=== PATIENT | male | born 1965 | race Caucasian/White ===

== ENCOUNTER 2021-01-03 09:07 | Inpatient (IN) ==
[2021-01-03] MEDS ORDERED: ONDANSETRON INJ 2 MG/ML 2 ML VIAL IV STA (09:26)
[2021-01-03] MEDS ORDERED: HYDROmorphone INJ 1 MG/ML SYRINGE IV STA (09:26)
[2021-01-03 10:34] LABS: Basophils # (auto) 0.03 K/uL (0-0.2); Basophils % (auto) 0.5 %; Eosinophils # (auto) 0.41 K/uL (0-0.5); Eosinophils % (auto) 6.9 %; Hematocrit (blood only) 46.2 % (42-52); Immature Granulocytes # (auto) 0.01 K/uL (0.00-0.02); Immature Granulocytes % (auto) 0.2 %; Lymphocytes # (auto) 2.08 K/uL (1.2-3.4); Lymphocytes % (auto) 35.1 %; Mean Corpuscular Hemoglobin 32.6 pg (25-34); Mean Corpuscular Hgb Conc 34.6 g/dL (32-36); Mean Corpuscular Volume 94.1 fL (80-100); Mean Platelet Volume 9.6 fL (7.4-10.4); Monocytes # (auto) 0.48 K/uL (0.11-0.59); Monocytes % (auto) 8.1 %; Neutrophils # (auto) 2.91 K/uL (1.4-6.5); Neutrophils % (auto) 49.2 %; Platelet Count 276 K/uL (130-400); RDW Coefficient of Variation 13.9 % (11.5-14.5); RDW Standard Deviation 47.7 fL (36.4-46.3); Red Blood Count 4.91 M/uL (4.7-6.1); White Blood Count 5.92 K/uL (4.8-10.8)
[2021-01-03 10:44] LABS: Partial Thromboplastin Time 26.9 Seconds (21.0-31.0); Prothrombin Time 9.8 Seconds (9.0-12.0)
[2021-01-03 10:51] LABS: BUN Creatinine Ratio 16.9 (10-20); Calcium 9.4 mg/dl (8.5-10.1); Est GFR (African American) 89.1 ml/min; Est GFR (Non-African American) 76.9 ml/min; Potassium 4.5 mmol/L (3.5-5.1)
--- NOTE | 2021-01-03 12:12 | Magnetic Resonance Report ---
MR lumbar spine wo con CLINICAL HISTORY: 55 years-old Male with backpainurinaryincontinecerocordcompression. Chronic low ba ck pain with bilateral lower extremity radicular symptoms COMPARISON: None. TECHNIQUE: Multiplanar, multi sequence MRI of the lumbar spine was performed without intravenous cont rast. FINDINGS: The housekeeping laundry worker localizer images demonstrate no gross extraspinal abnormality. Conus medullaris terminates at T12-L1. Signal within the imaged thoracic spinal cord is unremarkable. No acute fracture, subluxat ion or endplate erosion. The paraspinal tissues are within normal limits. Prior posterior decompressi on at L3-L5 with posterior interbody shania and screw fusion at L3-S1 with discectomy changes at L4-L5. Small amount of fluid within the deep operative bed is likely expected postoperative finding. T11-T12: Moderate intervertebral disc space narrowing with spondylitic spurring and circumferential a nnular disc bulge. Posterior annular fissure with central disc protrusion and mild facet arthrosis. T here is mild central canal stenosis AP dimension of the thecal sac measuring 9 mm. The bilateral neur al foramen are patent. T12-L1: Mild facet arthrosis. No central canal or neural foraminal stenosis. L1-L2: Mild facet arthrosis. No central canal or neural foraminal stenosis. L2-L3: Mild intervertebral disc space narrowing with spondylitic spurring and circumferential annula r disc bulge with moderate facet arthrosis. Posterior annular fissure with large central disc protrus ion extending into the paracentral spaces. This results in severe central canal stenosis with AP dime nsion of the thecal sac measuring 3 mm. Severe narrowing of the lateral recesses. There is mild right greater than left bilateral neural foraminal narrowing. L3-L4: Mild intervertebral disc space narrowing with spondylitic spurring. Prior posterior decompres anthony. No central canal or left neural foraminal narrowing. Mild right foraminal stenosis. L4-L5: Prior discectomy with posterior decompression. No central canal or left foraminal narrowing i dentified. There is suggestion mild right foraminal stenosis. L5-S1: Posterior decompression. Mild intervertebral disc space narrowing. Epidural lipomatosis. No s ignificant central canal or neural foraminal narrowing. IMPRESSION: 1. Mild intervertebral disc space narrowing with spondylitic spurring and circumferential annular dis c bulge with moderate facet arthrosis at L2-L3. Posterior annular fissure with large central disc pro trusion causes severe central canal narrowing with severe stenosis of the lateral recesses, and mild bilateral neural foraminal narrowing. 2. At T11-T12, discogenic degeneration contributes to cause mild central canal stenosis with mild romi ateral neural foraminal narrowing. 3. Prior posterior decompression at L3-L5 with posterior interbody shania and screw fusion at L3-S1. ACT 112: Negative or not required by law. The above report was generated using voice recognition software. It may contain grammatical, syntax o r spelling errors. Electronically signed by: Angel Flores M.D. 01/03/2021 12:11 PM
--- NOTE | 2021-01-03 14:24 | Anesthesiology Consultation ---
Date of Service January 03, 2021 The patient was initially scheduled for surgery yesterday, 01/02/21. He required preoperative cardiac clearance so his surgery was delayed. Cardiac clearance was sent yesterday from the patient's supervisor filtration in [place] stating that the patient was okay for surgery with a low to moderate cardiac risk. The patient came through the ER today as an emergency add on. Assessment & Plan (1) Encounter for pre-operative examination: Chart Review Chart Review: Acceptable Risk for Surgery and Patient NOT seen in Pre Admission Testing Consults Requested none cardiac clearance was obtained History Height/Weight Height: 5 ft 8 in Weight: 87.3 kg Allergies Allergy/AdvReac Type Severity Reaction Status Date / Time codeine AdvReac Mild NAUSEA AND Verified 01/03/21 09:21 VOMITING naproxen AdvReac Mild NAUSEA Verified 01/03/21 09:21 Medications Home Medications Medication Instructions Recorded Confirmed Last Taken esomeprazole magnesium 40 mg 40 mg PO QAM 12/30/20 01/03/21 01/02/21 capsule,delayed release (Nexium) fluoxetine 40 mg capsule 40 mg PO QAM 12/30/20 01/03/21 01/02/21 hydrocodone 5 mg-acetaminophen 325 1 tab PO Q8H PRN 12/30/20 01/03/21 Unknown mg tablet losartan 50 mg tablet 50 mg PO QAM 12/30/20 01/03/21 01/02/21 metoprolol succinate 25 mg 25 mg PO QAM 12/30/20 01/03/21 01/02/21 tablet,extended release 24 hr (Toprol XL) pravastatin 40 mg tablet 40 mg PO QAM 12/30/20 01/03/21 01/02/21 Past Medical History Medical History BPH (benign prostatic hyperplasia) Chronic diastolic CHF (congestive heart failure) Depression GERD (gastroesophageal reflux disease) Herniated disc Hyperlipidemia Hypertension Osteoarthritis Sleep apnea no machine Spinal stenosis Past Surgical History Surgical History History of lumbar spinal fusion x 3 History of surgery on arm right arm crushed in accident and had 3 surgeries Hx of tonsillectomy Hx of umbilical hernia repair Social History Smoking Status: Never smoker tobacco type: cigarettes Smoking cigarettes per day: 1/2 ppd Hx Alcohol Use: Yes Alcohol type: beer alcohol intake frequency: a few times a week Hx Substance Use: No substance use type: does not use Physical Exam Vital Signs Last Vital Signs Temp 36.7 C 01/03/21 09:10 Pulse 66 01/03/21 14:14 Resp 18 01/03/21 14:14 BP 118/71 01/03/21 14:14 Pulse Ox 99 01/03/21 14:14 Testing Laboratory Results 01/03/21 10:23 01/03/21 10:23 PT 9.8 Seconds (9.0-12.0) 01/03/21 10:23 INR 1.0 (0.9-1.1) 01/03/21 10:23 APTT 26.9 Seconds (21.0-31.0) 01/03/21 10:23 Electrocardiogram Date: 12/29/20 Findings: + NSR @ (67), + NSST changes and + T wave inversion (anterior) Chest X-Ray Date: 12/29/20 R chest 2V PA/lateral HISTORY: 55 years-old Male PREOP chronic back pain COMPARISON: 07/03/2011 TECHNIQUE: PA and lateral views of the chest FINDINGS: Cardiomediastinal and hilar silhouettes are within normal limits. No pneumot horax, pleural effusion, airspace consolidation or overt pulmonary edema. Bones of the chest appear grossly intact. IMPRESSION: No acute process. ACT 112: Negative or not required by law. The above report was generated using voice recognition software. It may contain grammatical, syntax or spelling errors. Electronically signed by: Angel Flores M.D. 12/29/2020 1:20 PM Echocardiogram Date: 10/20/20 EF: 45 Other Findings: + atrial enlargement (left atrium mild dilation, right atrium slight dilation) and + RVH (mildly dilated) Valvular Disease: + MR (trace)
--- NOTE | 2021-01-03 14:27 | Emergency Department Note ---
History of Present Illness General Chief Complaint: Back Injury/Pain Stated Complaint: BACK PAIN, UNCONTROLLABLE BOWELS Time Seen by Provider: 01/03/21 09:22 History of Present Illness Provider Complaint: back pain Onset (ago): day(s) 1 Similar Symptoms Previously: Yes Location: lumbar spine Quality: + sharp Radiation: none Severity: severe Maximum Pain Intensity: 9 Current Pain Intensity: 9 Relieved By: + none Exacerbated By: + none Context: no turning/twisting, no bending, no fall, no trauma, no syncope, no history of kidney stones or no IV drug use Associated symptoms: + urinary incontinence and + fecal incontinence; no weakness, no syncope, no numbness, no loss of sensation in lower extremities, no increased urinary urgency, no increased urinary frequency, no a change in bowel habits, no fever, no chills, no abdominal pain, no dysuria, no hematuria, no parasthesias, no arthralgias or no myalgias Sees Dr. Clarke Home Medications Medication Instructions Recorded Confirmed Type esomeprazole magnesium 40 mg 40 mg PO QA 12/30/20 01/03/21 History capsule,delayed release (Nexium) fluoxetine 40 mg capsule 40 mg PO QAM 12/30/20 01/03/21 History hydrocodone 5 mg-acetaminophen 325 1 tab PO Q8H PRN 12/30/20 01/03/21 History mg tablet losartan 50 mg tablet 50 mg PO QAM 12/30/20 01/03/21 History metoprolol succinate 25 mg 25 mg PO QAM 12/30/20 01/03/21 History tablet,extended release 24 hr (Toprol XL) pravastatin 40 mg tablet 40 mg PO QAM 12/30/20 01/03/21 History Allergies Allergy/AdvReac Type Severity Reaction Status Date / Time codeine AdvReac Mild NAUSEA AND Verified 01/03/21 09:21 VOMITING naproxen AdvReac Mild NAUSEA Verified 01/03/21 09:21 Past Med/Surg History Medical History BPH (benign prostatic hyperplasia) Chronic diastolic CHF (congestive heart failure) Depression GERD (gastroesophageal reflux disease) Herniated disc Hyperlipidemia Hypertension Osteoarthritis Sleep apnea no machine Spinal stenosis Surgical History History of lumbar spinal fusion x 3 History of surgery on arm right arm crushed in accident and had 3 surgeries Hx of tonsillectomy Hx of umbilical hernia repair Social History Smoking Status: Never smoker Cigarettes Per Day: 1/2 ppd; Second Hand Exposure: No; Hx Alcohol Use: Yes Alcohol type: beer Hx Substance Use: No Preferred Language: Japanese Communication Ability: Effective Bar Steward Required: No Beliefs That Will Affect Care: None Current Living Situation: Spouse Feels Safe at Home: Yes Assistive Devices: Glasses Review of Systems A total of 10 systems reviewed and were otherwise negative Physical Exam Vital Signs Vital Signs - 24 hr 01/03/21 09:10 01/03/21 12:13 01/03/21 14:14 Temperature 36.7 C Temperature Source Temporal Artery Scan Pulse Rate 69 66 Pulse Rate [Radial] 60 Pulse Rhythm [Radial] Regular Respiratory Rate 18 17 18 Respiratory Effort / Characteristics Non-Labored Respiratory Depth Normal Blood Pressure 120/83 118/71 Blood Pressure [Left Arm] 106/66 Blood Pressure Mean 95 Blood Pressure Mean [Left Arm] 79 Pulse Oximetry 93 97 99 Oxygen Delivery Method Room Air Room Air Room Air Sepsis Recent Fever Within 48 Hours No Sepsis New/Unexplained Change in Mental Status No Sepsis Action Taken by Nursing No Action Required Physical Exam GENERAL: He is oriented to person, place, and time. He appears well-developed and well-nourished. He does not appear distressed. HENT: Exam performed. - Head: Normocephalic and atraumatic. - Right Ear: External ear normal. No mastoid tenderness. - Left Ear: External ear normal. No mastoid tenderness. - Mouth/Throat: The oropharynx is clear and moist. No trismus in the jaw. No dental abscesses or uvula swelling. No oropharyngeal exudate or tonsillar abscesses. EYES: Conjunctivae and EOM are normal. Pupils are equal, round, and reactive to light. Right eye exhibits no discharge. Left eye exhibits no discharge. No scleral icterus. NECK: Normal range of motion. Neck supple. No JVD present. No spinous process tenderness present. No carotid bruit present. No rigidity. No tracheal deviation and normal range of motion present. No Brudzinski's sign and no Kernig's sign noted. CV: Normal rate, regular rhythm, normal heart sounds and intact distal pulses. There is no peripheral edema. Palpable radial pulses bue. PULM/CHEST: Effort normal and breath sounds normal. No respiratory distress. No stridor. He has no wheezes. He has no rales. - Chest Wall: He exhibits no tenderness. ABD: The abdomen is soft. Bowel sounds are normal. He has no distension. No mass is present. There is no tenderness. There is no rebound, no guarding, no Valenzuela's sign and no tenderness at McBurney's point. Rovsig negative. MUSC/SKEL: No C or T-spine tenderness to palpation. Pain on palpation of the lumbar spine. LYMPH: No cervical adenopathy. NEURO: He is alert and oriented to person, place, and time. He has normal strength. No cranial nerve deficit or sensory deficit. Coordination and gait normal. GCS eye subscore is 4. GCS verbal subscore is 5. GCS motor subscore is 6. Cerebellar tests wnl. SKIN: Skin is warm and dry. He is not diaphoretic. PSYCH: He has a normal mood and affect. Behavior is normal. Judgment and thought content normal. Course Course 921: The patient was evaluated in room C6. A complete history and physical exam was performed Cardiac monitoring: An order was placed for continuous cardiac monitoring. The monitor shows a rate of 70 with sinus rhythm 1240: Vital signs stable. Patient states his pain is controlled after Dilaudid. Discussed the MRI results with the patient's back surgeon Dr. Clarke who recommends that the patient be admitted to his service and he will plan on ev aluating the patient for surgical procedure. He states he will be down to evaluate the patient and put admission orders shortly. Administered Medications Discontinued Medications Hydromorphone HCl (Hydromorphone Inj 1 Mg/Ml Syringe) 1 mg IV NOW STA Stop: 01/03/21 09:27 Last Admin: 01/03/21 10:44 Dose: 1 mg Documented by: [id number] Ondansetron HCl (Ondansetron Inj 2 Mg/Ml 2 Ml Vial) 4 mg IV NOW STA Stop: 01/03/21 09:27 Last Admin: 01/03/21 10:37 Dose: 4 mg Documented by: [id number] Medical Decision Making Laboratory Data Result diagrams: 01/03/21 10:23 01/03/21 10:23 Lab Results 01/03/21 01/03/21 01/03/21 Range/Units 10:23 10:23 10:23 WBC 5.92 (4.8-10.8) K/uL RBC 4.91 (4.7-6.1) M/uL Hgb 16.0 (14.0-18.0) g/dL Hct 46.2 (42-52) % MCV 94.1 (80-100) fL MCH 32.6 (25-34) pg MCHC 34.6 (32-36) g/dL RDW Std Deviation 47.7 H (36.4-46.3) fL RDW Coeff of Amanda 13.9 (11.5-14.5) % Plt Count 276 (130-400) K/uL MPV 9.6 (7.4-10.4) fL Immature Gran % (Auto) 0.2 % Neut % (Auto) 49.2 % Lymph % (Auto) 35.1 % [place] % (Auto) 8.1 % Eos % (Auto) 6.9 % Baso % (Auto) 0.5 % Neut # (Auto) 2.91 (1.4-6.5) K/uL Lymph # (Auto) 2.08 (1.2-3.4) K/uL [place] # (Auto) 0.48 (0.11-0.59) K/uL Eos # (Auto) 0.41 (0-0.5) K/uL Baso # (Auto) 0.03 (0-0.2) K/uL Immature Gran # (Auto) 0.01 (0.00-0.02) K/uL PT 9.8 (9.0-12.0) Seconds INR 1.0 (0.9-1.1) APTT 26.9 (21.0-31.0) Seconds PTT Ratio 1.0 Sodium 138 (136-145) mmol/L Potassium 4.5 (3.5-5.1) mmol/L Chloride 109 H (98-107) mmol/L Carbon Dioxide 24 (21-32) mmol/L Anion Gap 5.0 (3-11) BUN 18 (7-18) mg/dl Creatinine 1.08 (0.6-1.4) mg/dl Est Cr Clr Drug Dosing 83.0 ml/min Est GFR ( Amer) 89.1 ml/min Est GFR (Non-Af Amer) 76.9 ml/min BUN/Creatinine Ratio 16.9 (10-20) Glucose 98 (70-99) mg/dl Calcium 9.4 (8.5-10.1) mg/dl COVID-19 Eval Order SARS-CoV-2 (PCR) (Negative) 01/03/21 01/03/21 Range/Units 12:38 12:38 WBC (4.8-10.8) K/uL RBC (4.7-6.1) M/uL Hgb (14.0-18.0) g/dL Hct (42-52) % MCV (80-100) fL MCH (25-34) pg MCHC (32-36) g/dL RDW Std Deviation (36.4-46.3) fL RDW Coeff of Amanda (11.5-14.5) % Plt Count (130-400) K/uL MPV (7.4-10.4) fL Immature Gran % (Auto) % Neut % (Auto) % Lymph % (Auto) % [place] % (Auto) % Eos % (Auto) % Baso % (Auto) % Neut # (Auto) (1.4-6.5) K/uL Lymph # (Auto) (1.2-3.4) K/uL [place] # (Auto) (0.11-0.59) K/uL Eos # (Auto) (0-0.5) K/uL Baso # (Auto) (0-0.2) K/uL Immature Gran # (Auto) (0.00-0.02) K/uL PT (9.0-12.0) Seconds INR (0.9-1.1) APTT (21.0-31.0) Seconds PTT Ratio Sodium (136-145) mmol/L Potassium (3.5-5.1) mmol/L Chloride (98-107) mmol/L Carbon Dioxide (21-32) mmol/L Anion Gap (3-11) BUN (7-18) mg/dl Creatinine (0.6-1.4) mg/dl Est Cr Clr Drug Dosing ml/min Est GFR ( Amer) ml/min Est GFR (Non-Af Amer) ml/min BUN/Creatinine Ratio (10-20) Glucose (70-99) mg/dl Calcium (8.5-10.1) mg/dl COVID-19 Eval Order Covid19 at [facility] SARS-CoV-2 (PCR) NEGATIVE (Negative) Imaging Data Radiologist's Impression: Lumbar Spine MRI 01/03/21 09:26 MR lumbar spine wo con CLINICAL HISTORY: 55 years-old Male with ba ckpainurinaryincontinecerocordcompression. Chronic low back pain with bilateral lower extremity radicular symptoms COMPARISON: None. TECHNIQUE: Multiplanar, multi sequence MRI of the lumbar spine was performed without intravenous contrast. FINDINGS: The lock up worker localizer images demonstrate no gross extraspinal abnormality. Conus medullaris terminates at T12-L1. Signal within the imaged thoracic spinal cord is unremarkable. No acute fracture, subluxation or endplate erosion. The paraspinal tissues are within normal limits. Prior posterior decompression at L3-L5 with posterior interbody shania and screw fusion at L3-S1 with discectomy changes at L4-L5. Small amount of fluid within the deep operative bed is likely expected postoperative finding. T11-T12: Moderate intervertebral disc space narrowing with spondylitic spurring and circumferential annular disc bulge. Posterior annular fissure with central disc protrusion and mild facet arthrosis. There is mild central canal stenosis A P dimension of the thecal sac measuring 9 mm. The bilateral neural foramen are patent. T12-L1: Mild facet arthrosis. No central canal or neural foraminal stenosis. L1-L2: Mild facet arthrosis. No central canal or neural foraminal stenosis. L2-L3: Mild intervertebral disc space narrowing with spondylitic spurring and circumferential annular disc bulge with moderate facet arthrosis. Posterior annular fissure with large central disc protrusion extending into the paracentral spaces. This results in severe central canal stenosis with AP dimension of the thecal sac measuring 3 mm. Severe narrowing of the lateral recesses. There is mild right greater than left bilateral neural foraminal giles rowing. L3-L4: Mild intervertebral disc space narrowing with spondylitic spurring. Prior posterior decompression. No central canal or left neural foraminal narrowing. Mild right foraminal stenosis. L4-L5: Prior discectomy with posterior decompression. No central canal or left foraminal narrowing identified. There is suggestion mild right foraminal stenosis. L5-S1: Posterior decompression. Mild intervertebral disc space narrowing. Epidural lipomatosis. No significant central canal or neural foraminal narrowing. IMPRESSION: 1. Mild intervertebral disc space narrowing with spondylitic spurring and circumferential annular disc bulge with moderate facet arthrosis at L2-L3. Posterior annular fissure with large central disc protrusion causes severe central canal narrowing with severe stenosis of the lateral recesses, and mild bilateral neural foraminal narrowing. 2. At T11-T12, discogenic degeneration contributes to cause mild central canal stenosis with mild bilateral neural foraminal narrowing. 3. Prior posterior decompression at L3-L5 with posterior interbody shania and screw fusion at L3-S1. ACT 112: Negative or not required by law. The above report was generated using voice recognition software. It may contain grammatical, syntax or spelling errors. Electronically signed by: Angel Flores M.D. 01/03/2021 12:11 PM MDM Narrative 0922: The patient was evaluated in room C6. A complete history and physical exam was performed Cardiac monitoring: An order was placed for continuous cardiac monitoring. The monitor shows a rate of 70 with sinus rhythm 1240: Vital signs stable. Patient states his pain is controlled after Dilaudid. Discussed the MRI results with the patient's back surgeon Dr. Clarke who recommends that the patient be admitted to his service and he will plan on evaluating the patient for surgical procedure. He states he will be down to evaluate the patient and put admission orders shortly. Impression & Plan Lumbar disc herniation Discharge Plan Visit Data Chief Complaint: Back Injury/Pain Stated Complaint: BACK PAIN, UNCONTROLLABLE BOWELS Discharge Problem: Lumbar disc herniation Patient Disposition: Admitted As Inpatient Discharge Instructions Interventions: ED Discharge Assessment Last Done: 01/03/21 14:14 Forms Stand Alone Forms: [facility] Osurv Prescriptions Prescriptions: No Action losartan 50 mg Tablet 50 mg PO QAM RF: 0 fluoxetine 40 mg Capsule 40 mg PO QAM RF: 0 pravastatin 40 mg Tablet 40 mg PO QAM RF: 0 hydrocodone-acetaminophen 5-325 mg Tablet 1 tab PO Q8H PRN (Reason: Pain) RF: 0 esomeprazole magnesium [Nexium] 40 mg Capsule,Delayed Release(Dr/Ec) 40 mg PO QAM RF: 0 metoprolol succinate [Toprol XL] 25 mg Tablet Extended Release 24 Hr 25 mg PO QAM RF: 0 Referrals Referrals: PCP,NO [Primary Care Provider] -
[2021-01-03] MEDS ORDERED: EpINEphrine HCL INJ 1 MG/ML 1ML SYRINGE IV ONE (15:02)
[2021-01-03] MEDS ORDERED: BUPIVACAINE 0.5 % 5 MG/1 ML MPF 30ML VIAL INFIL ONE (15:02)
[2021-01-03] MEDS ORDERED: ceFAZolin 1000MG 1,000 MG/7.5 ML SYR IV ONE (15:03)
[2021-01-03] MEDS ORDERED: ePHEDrine sulfate 50 MG/ML AMP IV PRN (15:07)
[2021-01-03] MEDS ORDERED: ATROPINE SULFATE 0.1 MG/ML 10ML SYR IV PRN (15:07)
[2021-01-03] MEDS ORDERED: MEPERIDINE HCL 25 MG/ML CARP/VIAL IV PRN (15:07)
[2021-01-03] MEDS ORDERED: HYDROmorphone INJ 1 MG/ML SYRINGE IV PRN ×2 (15:07→20:21)
[2021-01-03] MEDS ORDERED: LABETALOL HCL IV 5 MG/ML 20ML IV PRN (15:07)
[2021-01-03] MEDS ORDERED: PHENYLEPHRINE 100MCG/ML 5ML SYR IV PRN (15:07)
[2021-01-03] MEDS ORDERED: ONDANSETRON INJ 2 MG/ML 2 ML VIAL IV PRN ×2 (15:07→20:21)
[2021-01-03] MEDS ORDERED: ceFAZolin 2,000 MG/15 ML IV PUSH IV ONE (15:09)
[2021-01-03] MEDS ORDERED: ceFAZolin 2000MG 2,000 MG/15 ML SYR IV ONE (15:11)
[2021-01-03] MEDS ORDERED: FLOSEAL HEMOSTATIC MATRIX 10ML TOP ONE (17:34)
--- NOTE | 2021-01-03 17:52 | Operative Report ---
Post Operative Report Pre & Post Diagnosis Operation Date: 01/03/21 12:00 Pre-Op Diagnosis: Cauda equina syndrome with neurogenic bladder Post-Op Diagnosis: Cauda equina syndrome with neurogenic bladder I identified the patient and participated in the time-out.: Yes Procedure Operation Date: 01/03/21 12:00 Actual Procedures #1 removal of posterior segmental instrumentation L3-S1. #2 exploration of fusion L3-S1. #3 lumbar decompression with bilateral medial facetectomies foraminotomies L1-L2 3. #4 posterior spinal fusion L2-L3. #5 placement posteri or instrumentation L2-S1. #6 interbody fusion L2-L3. #7 placement peek cage 11 x 26 mm at L2-L3. #8 placement locally harvested morselized autograft in the posterior gutters. #9 placement infuse collagen sponge and master graft in the posterior lateral gutters and I factor in the interbody space. Surgeon Carlos Clarke, Iron Molder Helper Karen Malone Estimated Blood Loss 500 Findings Consistent with Post-Op Diagnosis Specimens None Indications This is a 55-year-old male presents with marked decline in status with urinary retention loss of bowel bladder control and is here for urgent decompression fusion. Description of Procedure Patient was met with identified informed consent obtained. Patient was then taken to the operative suite underwent ablation placed in a prone position the Jay on top Geronimo frame. All bony prominences well-padded eyes inspected to ensure no external pressure placed upon the. This point the thoracolumbar spine was prepped and draped in a sterile fashion. Sharp dissection with the assistance of Bovie cartilage from down to and exposing the lamina and transverse processes of L2 and instrumentation at L3-L4 L5-S1 levels bilaterally. Then proceeded move the hardware bilaterally explore the fusion mass noting to be mature and intact. Informed complete laminectomy of L2 partial medically L1 including bilateral medial facetectomies and foraminotomies addressing severe stenosis as well as a massive disc herniation centrally. After complete decompression pedicle screws were placed in L2-L3 L5 and S1 levels bilaterally with assistance of fluoroscopy and appropriate sized shania placed. By way of a transforaminal portion of right complete discectomy of L2- L3 was performed endplates curetted to subcortical being bone and 11 x 26 mm peek cage filled with I factor tapped in position. The rods were then locked in final position bilaterally. The transverse processes of L2 and L3 burred to subcortically bone. Infuse collagen sponge master graft local autograft was placed in the posterior lateral gutters. 15 round OPAL drain inserted. The incision was then closed with 1 Vicryl fascia 2-0 Vicryl subcutaneously and 4 Monocryl for final skin closure. Steri-Strips dressings placed. Patient waken taken PACU stable condition. Please note spinal cord monitoring was utilized at the procedure no changes noted. Lastly Karen Malone was present for patient positioning complex portions of the procedure. I attest to the content of the Intraoperative Record and any orders documented therein. Any exceptions are noted below.
[2021-01-03] MEDS: fentaNYL citrate 100 MCG/2 ML VIAL IV PRN ×4 (18:36→19:08)
--- NOTE | 2021-01-03 18:43 | Fluoroscopy Report ---
FL lumbar spine 2-3V CLINICAL HISTORY: Posterior decompression and fusion. COMPARISON STUDY: Lumbar spine MRI January 03, 2021 FLUOROSCOPY TIME: 12 seconds. FLUOROSCOPIC IMAGES: 3 FINDINGS: Previous L4-L5 discectomy is noted with interbody spacer placement. Interval L2-L3 discecto my is noted. Posterior decompression is noted. There is a posterior fusion extending from L2 through S1. There are bilateral pleural screws at the L2, L3, L5 and S1 levels. IMPRESSION: Fluoroscopy provided during internal L2-L3 discectomy, posterior decompression and poste rior fusion from L2 through S1. ACT 112: Negative or not required by law. Electronically signed by: Rajeev Patricia M.D. 01/03/2021 6:42 PM
[2021-01-03] MEDS ORDERED: LORazepam 0.5 MG/1 ML VIAL IV PRN (20:21)
[2021-01-03] MEDS ORDERED: bisacodyL 10 MG SUPP PR PRN (20:21)
[2021-01-03] MEDS ORDERED: PROMETHAZINE HCL 12.5 MG in SODIUM CHLORIDE 0.9% 50 ML IV PRN (20:21)
[2021-01-03] MEDS ORDERED: SOD PHOSPHATE/SOD BIPHOSPHATE ENEMA 132 ML BTL PR PRN (20:21)
[2021-01-03] MEDS ORDERED: LACTATED RINGER'S 1,000 ML IV SCH (20:21)
[2021-01-03] MEDS ORDERED: LORazepam 0.5 MG TAB PO PRN (20:21)
[2021-01-03] MEDS ORDERED: DO NOT ADMINISTER FLU VACCINE PRN (20:21)
[2021-01-03] MEDS ORDERED: ONDANSETRON 4 MG OD TAB PO PRN (20:21)
[2021-01-03] MEDS ORDERED: HYDROmorphone INJ 0.5 MG/0.5 ML SYR IV PRN (20:21)
[2021-01-03] MEDS ORDERED: DO NOT ADMINISTER PNEUMOCOCCAL VACCINE PRN (20:21)
[2021-01-03] MEDS ORDERED: hydrOXYzine HCl 25 MG TAB PO PRN (20:21)
[2021-01-03] MEDS ORDERED: METOCLOPRAMIDE HCL INJ 5 MG/ML 2 ML VIAL IV PRN (20:21)
[2021-01-03] MEDS ORDERED: ACETAMINOPHEN 500 MG TAB PO PRN (20:21)
[2021-01-03] MEDS ORDERED: diphenhydrAMINE Capsule 25 MG CAP PO PRN (20:21)
[2021-01-03] MEDS ORDERED: MAGNESIUM HYDROXIDE SUSP 30 ML UDC PO PRN (20:21)
[2021-01-03] MEDS ORDERED: FAMOTIDINE 20 MG TAB PO PRN (20:21)
[2021-01-03] MEDS ORDERED: traMADol HCL 50 MG TABLET PO PRN (20:21)
[2021-01-03] MEDS ORDERED: NALOXONE HCL 0.4 MG/1 ML VIAL/CARP IV PRN (20:21)
[2021-01-03] MEDS ORDERED: ACETAMINOPHEN 1,000 MG/100 ML VIAL IV PRN (20:21)
[2021-01-03] MEDS ORDERED: ALUMINUM/MAGNESIUM SUSP 30 ML UDC PO PRN (20:21)
[2021-01-03] MEDS ORDERED: HYDROmorphone INJ 0.5 MG/0.5 ML SYR ONE (20:33)
[2021-01-03] MEDS: dexAMETHasone 6 MG in SYRINGE 0 ML IV SCH (22:05)
[2021-01-03] MEDS: DOCUSATE SODIUM/SENNA 50/8.6MG TAB PO SCH (22:06)
[2021-01-03] MEDS: oxyCODONE HCL IR 5 MG TAB (IMMEDIATE RELEASE) PO PRN (22:06)
[2021-01-03] MEDS: ceFAZolin 2000MG 2,000 MG/15 ML SYR IV SCH (22:06)
--- NOTE | 2021-01-03 23:09 | Hospitalist Consultation ---
Date of Consultation January 03, 2021 Assessment & Plan (1) Cauda equina syndrome with neurogenic bladder: Final Assessment and Recommendations as follows : Cauda equina syndrome status post surgery Postop hypotension hyperlipidemia, on statin Rx ongoing tobacco abuse IVF Appropriate to hold home BP meds for now until BP stable Nicotine patch as needed DVT prophylaxis. SCDs as per postop orthopedic orders Thank you very much for this consultation. Dr. Carvalho will follow patient's progress. Text document was generated using Pressable voice recognition software. It may contain grammatical or spelling errors. Kindly contact undersigned for clarification of any documentation item in question. History of Present Illness Reason for Consultation: Medical management Requesting Physician: Dr. Clarke Attending Physician: Carlos Clarke, History of Present Illness History obtained from patient and records. Medical history significant for hypertension, hyperlipidemia, GERD, ongoing tobacco abuse, chronic back pain. Last confinement December 2015 under Orthopedics spine service for elective back surgery. Patient noted worsening back pain complaints with aggressive lower extremity weakness and bowel/bladder incontinence in the last week. Patient underwent emergent surgery for cauda equina syndrome with neurogenic bladder today. Tolerable postop pain as per patient. Patient denies chest pain, S OB. SBP 90s postop. 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 Allergies Allergy/AdvReac Type Severity Reaction Status Date / Time codeine AdvReac Mild NAUSEA AND Verified 01/03/21 09:21 VOMITING naproxen AdvReac Mild NAUSEA Verified 01/03/21 09:21 Home Medications Medication Instructions Recorded Confirmed Type esomeprazole magnesium 40 mg 40 mg PO QAM 12/30/20 01/03/21 History capsule,delayed release (Nexium) fluoxetine 40 mg capsule 40 mg PO QAM 12/30/20 01/03/21 History hydrocodone 5 mg-acetaminophen 325 1 tab PO Q8H PRN 12/30/20 01/03/21 History mg tablet losartan 50 mg tablet 50 mg PO QAM 12/30/20 01/03/21 History metoprolol succinate 25 mg 25 mg PO QAM 12/30/20 01/03/21 History tablet,extended release 24 hr (Toprol XL) pravastatin 40 mg tablet 40 mg PO QAM 12/30/20 01/03/21 History Patient History Medical History BPH (benign prostatic hyperplasia) Chronic diastolic CHF (congestive heart failure) Depression GERD (gastroesophageal reflux disease) Herniated disc Hyperlipidemia Hypertension Osteoarthritis Sleep apnea no machine Spinal stenosis Surgical History History of lumbar spinal fusion x 3 History of surgery on arm right arm crushed in accident and had 3 surgeries Hx of tonsillectomy Hx of umbilical hernia repair Social History Smoking Status: Current every day smoker Cigarettes Per Day: 1/2 ppd; Second Hand Exposure: No; Do You Dip or Chew Tobacco: Yes; Tobacco Cessation Education Requested by Patient: No Hx Alcohol Use: Yes Alcohol type: beer Hx Substance Use: No Preferred Language: Faroese Communication Ability: Effective Director Retirement Required: No Beliefs That Will Affect Care: None Current Living Situation: Spouse Other Information That Helps Us Care for You: No Feels Safe at Home: Yes Safety Concerns: Feels Safe At This Time Assistive Devices: Walker Review of Systems Review of Systems: As per HPI, all 10 systems reviewed, all other ROS negative Physical Exam Physical Exam: GENERAL: Slightly uncomfortable, obese, no respiratory distress SKIN: Normal color, warm HEENT: Partial alopecia, [place] palpebral conjunctivae, no ptosis, dry buccal mucosa NECK : Supple, short neck, no tenderness CHEST : CTA, no tenderness HEART : RRR, no obvious murmurs ABDOMEN: Some distention, nontender EXTREMITIES : Minimal LE swelling, no LE tenderness, no other conspicuous deformities noted NEUROLOGIC : Coherent, no facial asymmetry, gait and stance not assessed Results & Data Results & Data ([facility]) Vital Signs (Past 12 Hours) Vital Signs Temp Pulse Pulse Pulse Pulse Resp BP 01/03/21 22:15 36.4 C L 81 16 01/03/21 21:12 36.5 C 18 01/03/21 20:47 36.4 C L 73 18 01/03/21 20:10 35.9 C L 75 17 01/03/21 20:05 36.5 C 69 18 01/03/21 19:35 67 12 01/03/21 19:30 01/03/21 19:25 36.4 C L 66 12 01/03/21 19:15 74 12 01/03/21 19:05 66 12 01/03/21 18:55 71 16 01/03/21 18:45 75 20 01/03/21 18:35 78 16 01/03/21 18:25 79 18 01/03/21 18:15 76 12 01/03/21 18:09 36.5 C 78 16 01/03/21 14:20 36.4 C L 60 18 01/03/21 14:14 66 18 118/71 01/03/21 12:13 60 17 BP BP Pulse Ox 01/03/21 22:15 106/69 96 01/03/21 21:12 102/67 95 01/03/21 20:47 93/61 L 96 01/03/21 20:10 101/73 95 01/03/21 20:05 103/70 94 01/03/21 19:35 101/62 94 01/03/21 19:30 96/61 L 01/03/21 19:25 88/61 L 95 01/03/21 19:15 88/54 L 94 01/03/21 19:05 93/56 L 96 01/03/21 18:55 90/59 L 95 01/03/21 18:45 90/60 L 98 01/03/21 18:35 92/71 L 97 01/03/21 18:25 122/62 97 01/03/21 18:15 106/74 95 01/03/21 18:09 102/61 96 01/03/21 14:20 118/75 96 01/03/21 14:14 99 01/03/21 12:13 106/66 97 Laboratory Results Laboratory Results WBC 5.92 K/uL (4.8-10.8) 01/03/21 10:23 RBC 4.91 M/uL (4.7-6.1) 01/03/21 10:23 Hgb 16.0 g/dL (14.0-18.0) 01/03/21 10:23 Hct 46.2 % (42-52) 01/03/21 10:23 MCV 94.1 fL (80-100) 01/03/21 10:23 MCH 32.6 pg (25-34) 01/03/21 10:23 MCHC 34.6 g/dL (32-36) 01/03/21 10:23 RDW Std Deviation 47.7 fL (36.4-46.3) H 01/03/21 10:23 RDW Coeff of Amanda 13.9 % (11.5-14.5) 01/03/21 10:23 Plt Count 276 K/uL (130-400) 01/03/21 10:23 MPV 9.6 fL (7.4-10.4) 01/03/21 10:23 Immature Gran % (Auto) 0.2 % 01/03/21 10:23 Neut % (Auto) 49.2 % 01/03/21 10:23 Lymph % (Auto) 35.1 % 01/03/21 10:23 [place] % (Auto) 8.1 % 01/03/21 10:23 Eos % (Auto) 6.9 % 01/03/21 10:23 Baso % (Auto) 0.5 % 01/03/21 10:23 Neut # (Auto) 2.91 K/uL (1.4-6.5) 01/03/21 10:23 Lymph # (Auto) 2.08 K/uL (1.2-3.4) 01/03/21 10:23 [place] # (Auto) 0.48 K/uL (0.11-0.59) 01/03/21 10:23 Eos # (Auto) 0.41 K/uL (0-0.5) 01/03/21 10:23 Baso # (Auto) 0.03 K/uL (0-0.2) 01/03/21 10:23 Immature Gran # (Auto) 0.01 K/uL (0.00-0.02) 01/03/21 10:23 PT 9.8 Seconds (9.0-12.0) 01/03/21 10:23 INR 1.0 (0.9-1.1) 01/03/21 10:23 APTT 26.9 Seconds (21.0-31.0) 01/03/21 10:23 PTT Ratio 1.0 01/03/21 10:23 Sodium 138 mmol/L (136-145) 01/03/21 10:23 Potassium 4.5 mmol/L (3.5-5.1) 01/03/21 10:23 Chloride 109 mmol/L (98-107) H 01/03/21 10:23 Carbon Dioxide 24 mmol/L (21-32) 01/03/21 10:23 Anion Gap 5.0 (3-11) 01/03/21 10:23 BUN 18 mg/dl (7-18) 01/03/21 10:23 Creatinine 1.08 mg/dl (0.6-1.4) 01/03/21 10:23 Est Cr Clr Drug Dosing 83.0 ml/min 01/03/21 10:23 Est GFR ( Amer) 89.1 ml/min 01/03/21 10:23 Est GFR (Non-Af Amer) 76.9 ml/min 01/03/21 10:23 BUN/Creatinine Ratio 16.9 (10-20) 01/03/21 10:23 Glucose 98 mg/dl (70-99) 01/03/21 10:23 Calcium 9.4 mg/dl (8.5-10.1) 01/03/21 10:23 COVID-19 Eval Order Covid19 at [facility] 01/03/21 12:38 SARS-CoV-2 (PCR) NEGATIVE (Negative) 01/03/21 12:38 Impressions Lumbar Spine MRI 01/03/21 09:26 MR lumbar spine wo con CLINICAL HISTORY: 55 years-old Male with backpainurinaryincontinecerocordcompression. Chronic low back pain with bilateral lower extremity radicular symptoms COMPARISON: None. TECHNIQUE: Multiplanar, multi sequence MRI of the lumbar spine was performed without intravenous contrast. FINDINGS: The leaf stripper localizer images demonstrate no gross extraspinal abnormality. Conus medullaris terminates at T12-L1. Signal within the imaged thoracic spinal cord is unremarkable. No acute fracture, subluxation or endplate erosion. The paraspinal tissues are within normal limits. Prior posterior decompression at L3-L5 with posterior interbody shania and screw fusion at L3-S1 with discectomy changes at L4-L5. Small amount of fluid within the deep operative bed is likely expected postoperative finding. T11-T12: Moderate intervertebral disc space narrowing with spondylitic spurring and circumferential annular disc bulge. Posterior annular fissure with central disc protrusion and mild facet arthrosis. There is mild central canal stenosis AP dimension of the thecal sac measuring 9 mm. The bilateral neural foramen are patent. T12-L1: Mild facet arthrosis. No central canal or neural foraminal stenosis. L1-L2: Mild facet arthrosis. No central canal or neural foraminal stenosis. L2-L3: Mild intervertebral disc space narrowing with spondylitic spurring and circumferential annular disc bulge with moderate facet arthrosis. Posterior annular fissure with large central disc protrusion extending into the paracentral spaces. This results in severe central canal stenosis with AP dimension of the thecal sac measuring 3 mm. Severe narrowing of the lateral recesses. There is mild right greater than left bilateral neural foraminal narrowing. L3-L4: Mild intervertebral disc space narrowing with spondylitic spurring. Prior posterior decompression. No central canal or left neural foraminal narrowing. Mild right foraminal stenosis. L4-L5: Prior discectomy with posterior decompression. No central canal or left foraminal narrowing identified. There is suggestion mild right foraminal s tenosis. L5-S1: Posterior decompression. Mild intervertebral disc space narrowing. Epidural lipomatosis. No significant central canal or neural foraminal narrowing. IMPRESSION: 1. Mild intervertebral disc space narrowing with spondylitic spurring and circumferential annular disc bulge with moderate facet arthrosis at L2-L3. Posterior annular fissure with large central disc protrusion causes severe central canal narrowing with severe stenosis of the lateral recesses, and mild bilateral neural foraminal narrowing. 2. At T11-T12, discogenic degeneration contributes to cause mild central canal stenosis with mild bilateral neural foraminal narrowing. 3. Prior posterior decompression at L3-L5 with posterior interbody shania and screw fusion at L3-S1. ACT 112: Negative or not required by law. The above report was generated using voice recognition software. It may contain grammatical, syntax or spelling errors. Electronically signed by: Angel Flores M.D. 01/03/2021 12:11 PM Lumbar Spine X-Ray 01/03/21 14:48 FL lumbar spine 2-3V CLINICAL HISTORY: Posterior decompression and fusion. COMPARISON STUDY: Lumbar spine MRI January 03, 2021 FLUOROSCOPY TIME: 12 seconds. FLUOROSCOPIC IMAGES: 3 FINDINGS: Previous L4-L5 discectomy is noted with interbody spacer placement. Interval L2-L3 discectomy is noted. Posterior decompression is noted. There is a posterior fusion extending from L2 through S1. There are bilateral pleural screws at the L2, L3, L5 and S1 levels. IMPRESSION: Fluoroscopy provided during internal L2-L3 discectomy, posterior decompression and posterior fusion from L2 through S1. ACT 112: Negative or not required by law. Electronically signed by: Rajeev Patricia M.D. 01/03/2021 6:42 PM
[2021-01-03] MEDS ORDERED: SODIUM CHLORIDE 0.9% 1000ML 1,000 ML IV ONE (23:42)
[2021-01-04 00:30] LABS: BUN Creatinine Ratio 16.8 (10-20); Blood Urea Nitrogen 24 mg/dl (7-18); Calcium 8.3 mg/dl (8.5-10.1); Carbon Dioxide 25 mmol/L (21-32); Chloride 108 mmol/L (98-107); Creatinine Clr Calc Pharmacy 64.2 ml/min; Est GFR (Non-African American) 55.2 ml/min; Glucose 147 mg/dl (70-99); Magnesium 2.1 mg/dl (1.8-2.4); Potassium 4.3 mmol/L (3.5-5.1); Sodium 139 mmol/L (136-145)
[2021-01-04] MEDS ORDERED: LACTATED RINGER'S 1,000 ML IV SCH (01:00)
[2021-01-04] MEDS ORDERED: SODIUM CHLORIDE 0.9% 1000ML 1,000 ML IV ONE ×2 (01:30→06:21)
[2021-01-04 01:54] LABS: Albumin Level 3.3 gm/dl (3.4-5.0); Aspartate Aminotransferase 24 U/L (15-37); Bilirubin,Total 0.3 mg/dl (0.2-1); Total Protein 6.4 gm/dl (6.4-8.2)
[2021-01-04 02:00] LABS: Alanine Aminotransferase 41 U/L (12-78); Alkaline Phosphatase 78 U/L (45-117); Bilirubin Direct < 0.1 mg/dl (0-0.2)
[2021-01-04] MEDS: LACTATED RINGER'S 1,000 ML IV SCH ×6 (02:44→23:06)
[2021-01-04 03:16] LABS: Appearance Urine Clear (Clear); Bilirubin Urine Negative (Negative); Blood Urine Negative (Negative); Color Urine Yellow; Glucose Urine UA Negative (Negative); Ketones Urine Negative (Negative); Leukocyte Esterase Urine Negative (Negative); Nitrite Urine Negative (Negative); Protein Urine Negative (Negative); Specific Gravity Urine 1.018 (1.000-1.030); Urobilinogen Urine Negative (Negative); pH Urine 5.5 (4.5-7.5)
[2021-01-04] MEDS: dexAMETHasone 6 MG in SYRINGE 0 ML IV SCH ×2 (04:53→12:55)
[2021-01-04 05:51] LABS: Basophils # (auto) 0.01 K/uL (0-0.2); Basophils % (auto) 0.1 %; Hematocrit (blood only) 36.8 % (42-52); Hemoglobin 12.5 g/dL (14.0-18.0); Immature Granulocytes # (auto) 0.02 K/uL (0.00-0.02); Immature Granulocytes % (auto) 0.2 %; Lymphocytes # (auto) 0.89 K/uL (1.2-3.4); Lymphocytes % (auto) 9.7 %; Mean Corpuscular Hemoglobin 32.7 pg (25-34); Mean Corpuscular Volume 96.3 fL (80-100); Mean Platelet Volume 9.7 fL (7.4-10.4); Monocytes # (auto) 0.16 K/uL (0.11-0.59); Monocytes % (auto) 1.7 %; Neutrophils # (auto) 8.14 K/uL (1.4-6.5); Neutrophils % (auto) 88.3 %; Platelet Count 232 K/uL (130-400); RDW Coefficient of Variation 14.2 % (11.5-14.5); RDW Standard Deviation 50.2 fL (36.4-46.3); Red Blood Count 3.82 M/uL (4.7-6.1); White Blood Count 9.22 K/uL (4.8-10.8)
[2021-01-04] MEDS: POLYETHYLENE (MIRALAX) 17 GM PACK PO SCH ×4 (06:05→22:58)
[2021-01-04] MEDS: ceFAZolin 2000MG 2,000 MG/15 ML SYR IV SCH (06:05)
[2021-01-04 06:08] LABS: BUN Creatinine Ratio 18.4 (10-20); Calcium 7.7 mg/dl (8.5-10.1); Creatinine Clr Calc Pharmacy 79.9 ml/min; Est GFR (African American) 83.4 ml/min; Potassium 4.3 mmol/L (3.5-5.1)
--- NOTE | 2021-01-04 07:22 | Anesthesiology Progress Note ---
Date of Service January 04, 2021 Anesthesia Post Procedure Vital Signs Vital Signs: Temp Pulse Pulse Pulse Pulse Resp BP 01/04/21 06:26 01/04/21 04:33 36.6 C 78 16 01/04/21 00:49 91 H 01/03/21 23:15 36.4 C L 84 17 01/03/21 22:15 36.4 C L 81 16 01/03/21 21:12 36.5 C 18 01/03/21 20:47 36.4 C L 73 18 01/03/21 20:10 35.9 C L 75 17 01/03/21 20:05 36.5 C 69 18 01/03/21 19:35 67 12 01/03/21 19:30 01/03/21 19:25 36.4 C L 66 12 01/03/21 19:15 74 12 01/03/21 19:05 66 12 01/03/21 18:55 71 16 01/03/21 18:45 75 20 01/03/21 18:35 78 16 01/03/21 18:25 79 18 01/03/21 18:15 76 12 01/03/21 18:09 36.5 C 78 16 01/03/21 14:20 36.4 C L 60 18 01/03/21 14:14 66 18 118/71 01/03/21 12:13 60 17 01/03/21 09:10 36.7 C 69 18 120/83 BP BP Pulse Ox 01/04/21 06:26 111/75 01/04/21 04:33 115/75 97 01/04/21 00:49 98/66 L 01/03/21 23:15 95/64 L 96 01/03/21 22:15 106/69 96 01/03/21 21:12 102/67 95 01/03/21 20:47 93/61 L 96 01/03/21 20:10 101/73 95 01/03/21 20:05 103/70 94 01/03/21 19:35 101/62 94 01/03/21 19:30 96/61 L 01/03/21 19:25 88/61 L 95 01/03/21 19:15 88/54 L 94 01/03/21 19:05 93/56 L 96 01/03/21 18:55 90/59 L 95 01/03/21 18:45 90/60 L 98 01/03/21 18:35 92/71 L 97 01/03/21 18:25 122/62 97 01/03/21 18:15 106/74 95 01/03/21 18:09 102/61 96 01/03/21 14:20 118/75 96 01/03/21 14:14 99 01/03/21 12:13 106/66 97 01/03/21 09:10 93 Pain Intensity Back: Pain Intensity: 4 Transfer of Care Handoff Completed per policy Notes Mental Status: alert / awake / arousable Patient Amnestic to Procedure: Yes Nausea / Vomiting: adequately controlled Pain: adequately controlled Airway Patency, RR, SpO2: stable & adequate BP & HR: stable & adequate Hydration State: stable & adequate Anesthetic Complications: no major complications apparent and Pt Satisfied with anesthetic care Notes: The patient's anesthetic was taken over by Dr. Taylor. He appears to have done well with the anesthetic. I spoke to his nurse on the floor. She states that his pain has been controlled. He does have some lower extremity numbness related to his back problem.
[2021-01-04] MEDS: oxyCODONE HCL IR 5 MG TAB (IMMEDIATE RELEASE) PO PRN ×3 (07:56→19:27)
[2021-01-04] MEDS: FLUoxetine HCL 20 MG CAP PO SCH (07:57)
[2021-01-04] MEDS: PRAVASTATIN SOD 40 MG TAB PO SCH (07:57)
[2021-01-04] MEDS: PANTOprazole 40 MG TAB PO SCH (07:58)
[2021-01-04] MEDS ORDERED: LOSARTAN POTASSIUM 50 MG TAB PO SCH (09:00)
[2021-01-04] MEDS ORDERED: METOPROLOL SUCC 25MG EXT REL TAB PO SCH (09:00)
[2021-01-04 11:57] LABS: Hematocrit (blood only) 33.7 % (42-52); Hemoglobin 11.4 g/dL (14.0-18.0)
--- NOTE | 2021-01-04 12:51 | Orthopedic Progress Note ---
Date of Service January 04, 2021 Assessment & Plan (1) Cauda equina syndrome with neurogenic bladder: Plan: This time initiated physical therapy assess his overall function and bowel bladder function. Admission and Anticipated Discharge Date Admission Date: January 03, 2021 Subjective Back pain controlled leg symptoms improved Physical Exam Physical Exam: Patient is good strength testing appears comfortable Results & Data ([facility]) Vital Signs (Past 12 Hours) Vital Signs Temp Pulse Pulse Resp BP Pulse Ox 01/04/21 11:54 36.5 C 92 H 16 146/90 H 95 01/04/21 11:17 36.7 C 89 20 126/84 95 01/04/21 07:49 36.7 C 82 18 112/82 95 01/04/21 07:40 36.4 C L 87 16 126/82 95 01/04/21 06:26 111/75 01/04/21 04:33 36.6 C 78 16 115/75 97
[2021-01-04 17:11] LABS: Basophils # (auto) 0.02 K/uL (0-0.2); Basophils % (auto) 0.1 %; Hematocrit (blood only) 34.1 % (42-52); Hemoglobin 11.6 g/dL (14.0-18.0); Immature Granulocytes # (auto) 0.06 K/uL (0.00-0.02); Immature Granulocytes % (auto) 0.4 %; Lymphocytes # (auto) 1.13 K/uL (1.2-3.4); Lymphocytes % (auto) 8.1 %; Mean Corpuscular Hemoglobin 31.7 pg (25-34); Mean Corpuscular Volume 93.2 fL (80-100); Mean Platelet Volume 9.5 fL (7.4-10.4); Monocytes # (auto) 0.78 K/uL (0.11-0.59); Monocytes % (auto) 5.6 %; Neutrophils # (auto) 11.94 K/uL (1.4-6.5); Neutrophils % (auto) 85.8 %; Platelet Count 214 K/uL (130-400); RDW Coefficient of Variation 13.9 % (11.5-14.5); RDW Standard Deviation 47.3 fL (36.4-46.3); Red Blood Count 3.66 M/uL (4.7-6.1); White Blood Count 13.93 K/uL (4.8-10.8)
[2021-01-04 17:12] LABS: BUN Creatinine Ratio 18.1 (10-20); Calcium 8.7 mg/dl (8.5-10.1); Creatinine Clr Calc Pharmacy 77.9 ml/min; Est GFR (African American) 80.9 ml/min; Est GFR (Non-African American) 69.8 ml/min
[2021-01-04] MEDS: DOCUSATE SODIUM/SENNA 50/8.6MG TAB PO SCH (22:57)
[2021-01-04] MEDS: SODIUM CHLORIDE 0.9% 1000ML 1,000 ML IV SCH (22:58)
--- NOTE | 2021-01-04 23:13 | Hospitalist Progress Note ---
Date of Service January 04, 2021 Assessment & Plan (1) Cauda equina syndrome with neurogenic bladder: Plan: s/p back surgery Present on Admission?: Yes (2) Hypertension: Plan: post was hypotensive. Holdiong BP meds hypotension improved to continue fluids To restart BP meds when BP elevated. (3) Depression: Plan: on Fluoxetine Present on Admission?: Yes Plan: pt/ot in am Admission and Anticipated Discharge Date Admission Date: January 03, 2021 Subjective Resting comfortably. no bowel or bladder incontinence still right leg is weak but slightly better no sob no hest pain no feeling of hot or cold no nausea no abdominal pain has some back pain Physical Exam Constitutional: WD/WN, vitals as above Neck: trachea midline, no thyromegaly Respiratory: normal respiratory effort, lungs clear to auscultation Cardiovascular: RRR, no murmur, no edema Gastrointestinal (Abdomen): normal bowel sounds, soft, nontender, no hepatosplenomegaly Musculoskeletal: s/p back surgery. Dressing and drain intact Neurologic: Speech / Cognition: + abnormal speech Right leg weakness present Results & Data Results & Data ([facility]) Vital Signs (Past 12 Hours) Vital Signs Temp Pulse Pulse Resp BP BP Pulse Ox 01/04/21 22:55 36.4 C L 73 18 124/82 95 01/04/21 19:34 36.4 C L 88 18 138/73 94 01/04/21 15:38 36.6 C 87 16 119/78 95 01/04/21 11:54 36.5 C 92 H 16 146/90 H 95 01/04/21 11:17 36.7 C 89 20 126/84 95
[2021-01-05] MEDS: POLYETHYLENE (MIRALAX) 17 GM PACK PO SCH ×3 (06:11→18:04)
[2021-01-05] MEDS: oxyCODONE HCL IR 5 MG TAB (IMMEDIATE RELEASE) PO PRN ×3 (07:05→19:29)
[2021-01-05] MEDS: SODIUM CHLORIDE 0.9% 1000ML 1,000 ML IV SCH ×3 (07:05→23:01)
--- NOTE | 2021-01-05 08:11 | Orthopedic Progress Note ---
Date of Service January 05, 2021 Assessment & Plan (1) Cauda equina syndrome with neurogenic bladder: Plan: This time continue physical therapy monitor his OPAL output. We discussed possible rehab he is most comfortable returning home. Admission and Anticipated Discharge Date Admission Date: January 03, 2021 Subjective Back pain controlled leg symptoms improving Physical Exam Physical Exam: Patient was able to stand for me today with the use of a walk er. Appears comfortable. Results & Data ([facility]) Vital Signs (Past 12 Hours) Vital Signs Temp Pulse Resp BP Pulse Ox 01/05/21 06:32 36.7 C 72 18 123/83 94 01/04/21 22:55 36.4 C L 73 18 124/82 95
[2021-01-05] MEDS: dexAMETHasone 8 MG in SYRINGE 0 ML IV SCH (08:52)
[2021-01-05] MEDS: PANTOprazole 40 MG TAB PO SCH (08:52)
[2021-01-05] MEDS: PRAVASTATIN SOD 40 MG TAB PO SCH (08:52)
[2021-01-05] MEDS: FLUoxetine HCL 20 MG CAP PO SCH (08:52)
[2021-01-05 10:51] LABS: Hematocrit (blood only) 33.8 % (42-52); Hemoglobin 11.5 g/dL (14.0-18.0); Immature Granulocytes # (auto) 0.04 K/uL (0.00-0.02); Immature Granulocytes % (auto) 0.3 %; Lymphocytes # (auto) 0.93 K/uL (1.2-3.4); Lymphocytes % (auto) 7.6 %; Mean Corpuscular Hemoglobin 32.6 pg (25-34); Mean Corpuscular Volume 95.8 fL (80-100); Mean Platelet Volume 9.6 fL (7.4-10.4); Monocytes % (auto) 4.9 %; Neutrophils # (auto) 10.59 K/uL (1.4-6.5); Neutrophils % (auto) 87.2 %; Platelet Count 222 K/uL (130-400); RDW Coefficient of Variation 14.2 % (11.5-14.5); RDW Standard Deviation 49.2 fL (36.4-46.3); Red Blood Count 3.53 M/uL (4.7-6.1); White Blood Count 12.16 K/uL (4.8-10.8)
[2021-01-05 11:20] LABS: BUN Creatinine Ratio 14.7 (10-20); Calcium 8.5 mg/dl (8.5-10.1); Creatinine Clr Calc Pharmacy 79.9 ml/min; Est GFR (African American) 83.4 ml/min; Potassium 3.9 mmol/L (3.5-5.1)
--- NOTE | 2021-01-05 16:58 | Hospitalist Progress Note ---
Date of Service January 05, 2021 Assessment & Plan (1) Cauda equina syndrome with neurogenic bladder: Plan: s/p back surgery Seems to be stable overall Hemoglobin stable around 11 Continue to monitor closely Acute blood loss anemia Hemoglobin stable around 11 Drain output improving Monitor closely (2) Hypertension: Plan: post was hypotensive Given IV LR Blood pressure improving consistently Asymptomatic Stop IV fluids Encouraged oral fluid intake Hold losartan and metoprolol for now Likely resume tomorrow (3) Depression: Plan: on Fluoxetine Plan: pt/ot plan of care discussed with patient in detail and at length all questions answered he is understanding, agreeable, comfortable with the plan of care Admission and Anticipated Discharge Date Admission Date: January 03, 2021 Subjective Follow-up for status post back surgery, hypertension, etc. Seen resting in bed, comfortable, in good spirits States back pain is well controlled Denies headache, dizziness, chest pain, palpitations, shortness of breath abdominal pain, nausea vomiting Ambulating in the room with no problems No fevers or chills No other symptoms Review of Systems Review of Systems: All noted negative except for above Physical Exam Physical Exam: General- oriented x 3, not in distress, speaks in sentences with no effort or accessory muscle use Eyes- anicteric Neck- no JVD Lungs- clear breath sounds bilaterally, no rales/wheezes Heart- normal rate, regular rhythm; no murmurs Abdomen- normal bowel sounds, nondistended, soft, nontender Extremities- no pretibial edema, no calf tenderness Neuro- alert, oriented x 3; no gross focal neurologic deficits Skin- warm & dry Results & Data Results & Data ([facility]) Vital Signs (Past 12 Hours) Vital Signs Temp Pulse Resp BP Pulse Ox 01/05/21 15:50 36.9 C 84 20 118/75 94 01/05/21 06:32 36.7 C 72 18 123/83 94 all noted and reviewed including below
[2021-01-05] MEDS: DOCUSATE SODIUM/SENNA 50/8.6MG TAB PO SCH (19:59)
[2021-01-06] MEDS: oxyCODONE HCL IR 5 MG TAB (IMMEDIATE RELEASE) PO PRN (02:04)
[2021-01-06] MEDS: SODIUM CHLORIDE 0.9% 1000ML 1,000 ML IV SCH (06:08)
[2021-01-06] MEDS: dexAMETHasone 8 MG in SYRINGE 0 ML IV SCH (08:35)
[2021-01-06] MEDS: PANTOprazole 40 MG TAB PO SCH (08:36)
[2021-01-06] MEDS: PRAVASTATIN SOD 40 MG TAB PO SCH (08:36)
[2021-01-06] MEDS: FLUoxetine HCL 20 MG CAP PO SCH (08:36)
[2021-01-06] MEDS ORDERED: LOSARTAN POTASSIUM 50 MG TAB PO SCH (09:00)
[2021-01-06] MEDS ORDERED: METOPROLOL SUCC 25MG EXT REL TAB PO SCH (09:00)
--- NOTE | 2021-01-06 12:49 | Discharge Summary ---
Date of Service January 06, 2021 Principal Diagnosis Lumbar spinal stenosis with cauda equina syndrome Discharge Data Allergies Allergy/AdvReac Type Severity Reaction Status Date / Time codeine AdvReac Mild NAUSEA AND Verified 01/03/21 09:21 VOMITING naproxen AdvReac Mild NAUSEA Verified 01/03/21 09:21 Consultations 01/03/21 12:30 ED Decision to Admit Stat 01/03/21 20:21 Consult Hospitalist Routine Procedures Performed Operation Date: 01/03/21 12:00 Actual Procedures p L2-L3 Decompression and Fusion, L3-S1 Hardware Removal, Spinal Cord Monitoring(Not Applicable) - Carlos Clarke, Ordered Studies 01/03/21 09:26 MR lumbar spine wo con Stat 01/03/21 14:48 FL lumbar spine 2-3V Routine Hospital Course (1) Cauda equina syndrome with neurogenic bladder: Patient underwent urgent lumbar decompression fusion trial as well as taken orthopedic for postoperative. Postop day #1 still struggling with some deficits in the right lower extremity. He progressed to postop day #2 postop day #3 was ambulating well pain controlled subsequently discharged home. Discharge orders instructions from the chart for further review. Total Time Total Time Spent Total Time Spent (In Minutes): 20 minutes Discharge Plan Discharge Items Patient Disposition: Home - Self-Care Reason For Visit: BACK PAIN, UNCONTROLLABLE BOWELS Discharge Diagnosis: Lumbar spinal stenosis with cauda equina syndrome Activity: As commented below Non-emergency contact: Primary Care Provider Call non-emergency contact if: you have any medication questions Follow-up/Referrals: PCP,NO [Physician] - Diet: Regular Addtl Attending Provider Instructions: ACTIVITY RECOMMENDATIONS: SELF CARE INSTRUCTIONS AFTER THORACIC/LUMBAR FUSIONS 1. You may walk to your tolerance. It is good exercise for your legs and back. Expect some back and intermittent leg aches and pains. 2. You may perform "counter-top" level activities (make a sandwich, soniya with a project, etc.). 3. No bending or lifting of more than 10 pounds or back twisting of any nature (roll like a log when turning in bed). 4. You may ride in a car for 20-30 minutes at a time. No driving until after your first visit with your doctor. 5. Frequent changes of position and restricting sitting to 30 minutes at a time will help limit the amount of back spasms and stiffness you may experience. 6. You may discontinue the use of ambulatory aids (cane, crutches, etc.) once your strength and confidence allow. 7. You may ethics instructor the shower and let water strike your incision when you arrive home at least once daily. Do not take a tub bath, sit in a hot tub or go into a swimming pool until after your first recheck in the office. SPECIAL CARE INSTRUCTIONS: VERY IMPORTANT TO READ AND REVIEW A. Your surgical incision has been closed with a cosmetic suture under the skin that will dissolve in about 6 weeks. In 14 days, you can use a pair of clean scissors and cut the suture that is left outside of the skin at the ends of your incision. 1. The small skin tapes can be removed 7 days after surgery if they have not fallen off by that point. 2. You may keep the wound open to air as much as possible to promote healing after post-op day number 5 unless told otherwise by your doctor. 3. If you think the wound looks like it is becoming infected (redness or worsening drainage) and/or you are experiencing fever, chill or worsening back pain and muscle spasms, contact the office so that we may evaluate you as soon as possible. B. Complications are uncommon, but please contact us if you have any signs or symptoms of: 1. wound infection (fever higher than 102.5 degrees F, redness, separation of wound, drainage, or increasing pain from the incision) 2. blood clots in legs (pain, swelling, redness and warmth in legs) 3. urinary tract infection (fever higher than 102.5 degrees F, burning upon urination or increased frequency of urination) 4. nerve problems (inability to walk on your toes or heels, numbness, loss of bowel or bladder control) 5. any other symptoms that concern you C. Please call the office at if you have any concerns or questions about your operation or recovery. D. No smoking! Smoking drastically decreases the chance of a solid fusion. E. Do not take any anti-inflammatory medications (Indocin, Advil, Motrin, Aspirin, Naprosyn, etc.) as these may inhibit the chance of a solid fusion. Tylenol is okay to take for pain. MANAGING PAIN AFTER SPINAL SURGERY 1. Narcotic medication is intended for short-term use and will be provided for surgical pain. Surgical pain usually lasts for a period of 4-6 weeks. Narcotic medication includes Percocet, Vicodin, Darvocet, Tylenol #3 or Lortab. 2. Longer-term pain is more appropriately treated with non-narcotic medication such as Tylenol ES. 3. Muscle spasm is not appropriately treated with narcotics. Muscle relaxers such as Soma, Flexeril or Skelaxin can be used along with Tylenol ES. 4. Remember that we all live with some "aches and pains". This is not unusual or uncommon after an injury or as we get older. a. Back pain is expected and may include muscle spasms for 4 to 6 weeks after surgery. The pain should gradually improve. If the pain worsens for no apparent reason, please contact the office. b. Intermittent leg pain may also be experienced and should not be concerned about unless it worsens for no apparent reason. If so, please contact the office. 5. We will provide appropriate medication within the normal guidelines of their prescribed use. We will also be very cautious and aware of potential abuse and extended duration of patients' medication needs. a. Pain medications are for your comfort and to assist with sleep and rest so that the tissue can heal. They are not provided in order to return to normal activity and should not be used through the day. To do so or worsening pain at night can result from ongoing tissue damage and development of tolerance to the prescribed medicine. 6. Please allow 2-3 days to process refills. Prescriptions will not be mailed but must be picked up at the office. FOLLOW UP VISIT: Keep your scheduled follow-up appointment. Any questions, please call the office at . Pending Studies at Discharge: No Stand-Alone Forms: [facility] C[facility] Medications and DC Order Prescriptions: New tramadol 50 mg tablet 50 mg PO Q6H PRN (Reason: pain, moderate) Qty: 30 RF: 0 oxycodone 5 mg tablet 5 mg PO Q6H PRN (Reason: pain, severe) Qty: 30 RF: 0 Continued losartan 50 mg Tablet 50 mg PO QAM RF: 0 fluoxetine 40 mg Capsule 40 mg PO QAM RF: 0 pravastatin 40 mg Tablet 40 mg PO QAM RF: 0 hydrocodone-acetaminophen 5-325 mg Tablet 1 tab PO Q8H PRN (Reason: Pain) RF: 0 esomeprazole magnesium [Nexium] 40 mg Capsule,Delayed Release(Dr/Ec) 40 mg PO QAM RF: 0 metoprolol succinate [Toprol XL] 25 mg Tablet Extended Release 24 Hr 25 mg PO QAM RF: 0 Discharge Orders: Discharge Order (Routine); Ordered 01/06/21 Ordered By: Carlos Clarke Admission Data Admit Date/Time: 01/03/21 18:01 Attending Provider: Carlos Clarke Admit Provider: Carlos Clarke Primary Care Provider: Natalee Enriquez Other Providers: Carlos Clarke ; Taylor Moya ; Shad Carvalho
== END 2021-01-06 13:45 | disposition home or self-care (01) | DRG 29 ==
LOC: ED 09:07 → 3N 14:14 → OR 14:14 → 3N 18:01